=== PATIENT | male | born 1935 | race African-American/Black ===

== ENCOUNTER 2018-07-20 20:36 | Emergency (ER) | payer MEDICARE, MEDICAID ==
[~2018-07-20] VITALS: Ht 170.2 cm; Wt 68.0 kg
[~2018-07-20 20:36] MED LIST: AMOX-426 PO; ATRMDI INH; CELE200C PO; CETI-101 PO; FLUT1DIS3 INH; ISO10 PO; LIP10 PO; METH4TAB3 PO; OMEP20CA10 PO; OXYC-580 PO; TAMS-11 PO
[2018-07-20 20:47] VITALS: BP_SYST 122
[2018-07-20] MEDS ORDERED: IPRATROPIUM/ALBUTEROL SULFATE 3 ML AMPUL.NEB INH ONE (21:00)
[2018-07-20] MEDS ORDERED: methylPREDNISolone SOD SUCC/PF 62.5 MG/ML VIAL IM ONE (21:00)
[2018-07-20] MEDS ORDERED: LEVOFLOXACIN 500 MG TABLET PO ONE (22:15)
[2018-07-20 22:35] VITALS: BP_SYST 99
== END 2018-07-20 22:35 | disposition home or self-care (01) ==
LOC: SED 20:36
DX: J44.1 Chronic obstructive pulmonary disease with (acute) exacerbation (principal); J45.909 Unspecified asthma, uncomplicated; Z85.46 Personal history of malignant neoplasm of prostate; Z79.899 Other long term (current) drug therapy; Z87.891 Personal history of nicotine dependence; Z71.6 Tobacco abuse counseling
CPT/HCPCS: 71045; 94640; 96372; 99283; J2930; J7620

== ENCOUNTER 2018-08-03 18:49 | Emergency (ER) | payer OTHER, MEDICAID ==
[~2018-08-03] VITALS: Ht 172.7 cm; Wt 63.5 kg
[2018-08-03 18:49] VITALS: BP_SYST 88
[2018-08-03] MEDS ORDERED: NITROGLYCERIN 1 INCH (GM) OINT. TP ONE (19:00)
[2018-08-03] MEDS ORDERED: ASPIRIN 81 MG TAB.CHEW PO ONE (19:00)
[2018-08-03 19:27] LABS: BASOPHILS % (AUTO) 0.6 % (0.0-2.0); EOSINOPHILS # (AUTO) 0.2 K/uL (0.0-0.4); EOSINOPHILS % (AUTO) 2.7 % (0.0-4.0); HEMATOCRIT 37.5 % (36-54); HEMOGLOBIN 12.2 g/dL (14.0-18.0); LYMPHOCYTES # (AUTO) 1.9 K/uL (1.0-5.5); LYMPHOCYTES % (AUTO) 32.1 % (20.5-51.5); MEAN CORPUSCULAR HEMOGLOBIN 28 pg (27-31); MEAN CORPUSCULAR HGB CONC 33 % (32-36); MEAN CORPUSCULAR VOLUME 85 fL (79.0-98.0); MONOCYTES # (AUTO) 0.5 K/uL (0.0-1.0); MONOCYTES % (AUTO) 8.6 % (1.7-9.3); NEUTROPHILS # (AUTO) 3.3 K/uL (1.8-7.7); PLATELET COUNT (AUTO) 198 K/uL (130-430); RED BLOOD CELL COUNT(AUTO) 4.44 MIL/uL (4.2-6.2); RED CELL DISTRIBUTION WIDTH 15.8 % (9.0-15.0); WHITE BLOOD COUNT (AUTO) 5.9 K/uL (4.8-10.8)
[2018-08-03 19:32] LABS: ANION GAP 3 (5-15); CALCIUM 8.9 mg/dL (8.4-11.0); CHLORIDE 105 mmol/L (98-107); CREATININE 1.27 mg/dL (0.55-1.30); GLUCOSE 99 mg/dL (70-99); POTASSIUM 4.2 mmol/L (3.5-5.1); SODIUM SERUM 139 mmol/L (136-145); UREA NITROGEN, BLOOD 21 mg/dL (8-21)
[2018-08-03 19:37] LABS: ALANINE AMINOTRANSFERASE 25 U/L (12-78); ALBUMIN 3.3 g/dL (3.4-4.8); ASPARTATE AMINOTRANSFERASE 21 U/L (10-37); TOTAL BILIRUBIN 0.7 mg/dL (0.0-1.0)
[2018-08-03 19:42] LABS: PROTHROMBIN TIME 9.9 SECS (9.5-12.5)
[2018-08-03 19:54] VITALS: BP_SYST 94
== END 2018-08-03 20:00 | disposition short-term general hospital (02) ==
LOC: SED 18:49
DX: I21.3 ST elevation (STEMI) myocardial infarction of unspecified site (principal); J44.9 Chronic obstructive pulmonary disease, unspecified; Z85.46 Personal history of malignant neoplasm of prostate; Z87.891 Personal history of nicotine dependence; Z79.899 Other long term (current) drug therapy; Z95.818 Presence of other cardiac implants and grafts
CPT/HCPCS: 36415; 71045; 80053; 83880; 84484; 85025; 85610-TC; 93005; 99285

== ENCOUNTER 2019-02-10 14:05 | Inpatient (IN) | payer OTHER, MEDICAID ==
[~2019-02-10] VITALS: Ht 172.7 cm; Wt 61.7 kg
[2019-02-10 14:05] VITALS: BP_SYST 121
[2019-02-10] MEDS ORDERED: NS 500 ML IV ONE (14:45)
[2019-02-10] MEDS ORDERED: IPRATROPIUM/ALBUTEROL SULFATE 3 ML AMPUL.NEB (DUONEB) INH ONE (14:45)
[2019-02-10 15:24] LABS: ANION GAP 2 (5-15); CALCIUM 9.1 mg/dL (8.4-11.0); CHLORIDE 100 mmol/L (98-107); GLUCOSE 100 mg/dL (70-99); POTASSIUM 4.3 mmol/L (3.5-5.1); SODIUM SERUM 133 mmol/L (136-145); UREA NITROGEN, BLOOD 16 mg/dL (8-21)
[2019-02-10 15:26] LABS: BASOPHILS # (AUTO) 0.1 K/uL (0.0-0.2); BASOPHILS % (AUTO) 0.9 % (0.0-2.0); EOSINOPHILS # (AUTO) 0.2 K/uL (0.0-0.4); EOSINOPHILS % (AUTO) 3.5 % (0.0-4.0); HEMATOCRIT 37.9 % (36-54); LYMPHOCYTES # (AUTO) 1.6 K/uL (1.0-5.5); LYMPHOCYTES % (AUTO) 30.7 % (20.5-51.5); MEAN CORPUSCULAR HEMOGLOBIN 27 pg (27-31); MEAN CORPUSCULAR HGB CONC 32 % (32-36); MEAN CORPUSCULAR VOLUME 84 fL (79.0-98.0); MONOCYTES # (AUTO) 0.7 K/uL (0.0-1.0); MONOCYTES % (AUTO) 12.7 % (1.7-9.3); NEUTROPHILS # (AUTO) 2.8 K/uL (1.8-7.7); NEUTROPHILS % (AUTO) 52.2 % (40.0-70.0); PLATELET COUNT (AUTO) 201 K/uL (130-430); RED BLOOD CELL COUNT(AUTO) 4.51 MIL/uL (4.2-6.2); RED CELL DISTRIBUTION WIDTH 15.3 % (9.0-15.0); WHITE BLOOD COUNT (AUTO) 5.3 K/uL (4.8-10.8)
[2019-02-10 15:27] LABS: PROTHROMBIN TIME 10.4 SECS (9.5-12.5)
[2019-02-10 15:29] LABS: ALANINE AMINOTRANSFERASE 27 U/L (12-78); ALBUMIN 3.6 g/dL (3.4-4.8); ASPARTATE AMINOTRANSFERASE 27 U/L (10-37)
[2019-02-10] MEDS ORDERED: ENOXAPARIN SODIUM 60 MG/0.6 ML SYRINGE SUBCUT ONE (16:00)
[2019-02-10] MEDS ORDERED: NITROGLYCERIN 0.4 MG/HR PATCH.TD24 TD ONE (16:15)
[2019-02-10] MEDS ORDERED: methylPREDNISolone SOD SUCC 40 MG/ML VIAL IVP ONE (16:15)
[2019-02-10] MEDS ORDERED: ASPIRIN 81 MG TAB.CHEW PO ONE (16:15)
[2019-02-10] MEDS ORDERED: TIOT4MIS3 IH (16:54)
[2019-02-10] MEDS ORDERED: ALBU2.5V7 INH (16:54)
[2019-02-10] MEDS ORDERED: TAMS-11 PO (16:54)
[2019-02-10] MEDS ORDERED: LIP20 PO (16:54)
[2019-02-10 17:20] VITALS: BP_SYST 120
[2019-02-10] MEDS: LEVOFLOXACIN 500 MG/D5W 100 ML IV SCH (18:11)
[2019-02-10] MEDS ORDERED: LEVOFLOXACIN 500 MG/D5W 100 ML IV ONE (18:17)
[2019-02-10 20:49] VITALS: BP_SYST 120
[2019-02-10] MEDS: methylPREDNISolone SOD SUCC 40 MG/ML VIAL IVP SCH (21:00)
[2019-02-11 00:03] LABS: CKMB RELATIVE INDEX 0.5 (0.0-2.9); CREATINE KINASE MB 2.3 ng/mL (0-3.6)
[2019-02-11] MEDS: ALBUTEROL SULFATE 0.083% 2.5 MG/3 ML VIAL.NEB INH PRN (02:31)
[2019-02-11 02:35] VITALS: BP_SYST 120
[2019-02-11 02:35] LABS: BILIRUBIN,URINE NEGATIVE (NEGATIVE); BLOOD, URINE NEGATIVE (NEGATIVE); CLARITY/URINE CLEAR (CLEAR); COLOR,URINE YELLOW (YELLOW); GLUCOSE,URINE NEGATIVE (NEGATIVE); KETONES,URINE NEGATIVE (NEGATIVE); LEUKOCYTE ESTERASE ,URINE NEGATIVE (NEGATIVE); NITRITE, URINE NEGATIVE (NEGATIVE); PROTEIN URINE NEGATIVE (NEGATIVE)
[2019-02-11 02:40] VITALS: BP_SYST 120
[2019-02-11 04:07] LABS: CKMB RELATIVE INDEX 0.5 (0.0-2.9); CREATINE KINASE MB 2.5 ng/mL (0-3.6)
[2019-02-11] MEDS: methylPREDNISolone SOD SUCC 40 MG/ML VIAL IVP SCH ×3 (05:18→21:57)
[2019-02-11 08:00] VITALS: BP_SYST 110
[2019-02-11] MEDS ORDERED: ASPIRIN 325 MG TABLET PO ONE (09:00)
[2019-02-11] MEDS ORDERED: LEVOFLOXACIN 500 MG/D5W 100 ML IV SCH (09:00)
[2019-02-11] MEDS: OMEPRAZOLE 20 MG CAPSULE.DR (PriLOSEC) PO SCH (09:23)
[2019-02-11] MEDS: ATORVASTATIN 20 MG TABLET PO SCH (09:23)
[2019-02-11] MEDS: TAMSULOSIN HCL 0.4 MG CAP PO SCH (09:23)
[2019-02-11] MEDS: ISOSORBIDE DINITRATE 10 MG TABLET (ISORDIL) PO SCH ×3 (09:24→21:57)
[2019-02-11] MEDS: NITROGLYCERIN 0.4 MG/HR PATCH.TD24 TD SCH (09:24)
[2019-02-11 11:41] VITALS: BP_SYST 112
[2019-02-11] MEDS ORDERED: ENOXAPARIN SODIUM 40 MG/0.4 ML SYRINGE SUBCUT ONE (14:00)
[2019-02-11] MEDS: ALBUTEROL SULFATE 0.083% 2.5 MG/3 ML VIAL.NEB INH SCH ×3 (14:32→19:50)
[2019-02-11] MEDS: LEVOFLOXACIN 500 MG/D5W 100 ML IV SCH (16:52)
[2019-02-11 16:59] VITALS: BP_SYST 106
[2019-02-11] MEDS: ACETAMINOPHEN 325 MG TABLET PO PRN (17:07)
[2019-02-11 20:00] VITALS: BP_SYST 103
[2019-02-12 00:48] VITALS: BP_SYST 100
[2019-02-12] MEDS: ALBUTEROL SULFATE 0.083% 2.5 MG/3 ML VIAL.NEB INH SCH ×4 (00:59→19:35)
[2019-02-12] MEDS: ACETAMINOPHEN 325 MG TABLET PO PRN (03:27)
[2019-02-12] MEDS: methylPREDNISolone SOD SUCC 40 MG/ML VIAL IVP SCH ×3 (05:16→23:14)
[2019-02-12 06:55] LABS: BASOPHILS % (AUTO) 0.2 % (0.0-2.0); HEMATOCRIT 36.5 % (36-54); HEMOGLOBIN 11.8 g/dL (14.0-18.0); LYMPHOCYTES # (AUTO) 0.7 K/uL (1.0-5.5); LYMPHOCYTES % (AUTO) 5.2 % (20.5-51.5); MEAN CORPUSCULAR HEMOGLOBIN 27 pg (27-31); MEAN CORPUSCULAR HGB CONC 32 % (32-36); MEAN CORPUSCULAR VOLUME 83 fL (79.0-98.0); MONOCYTES # (AUTO) 0.5 K/uL (0.0-1.0); MONOCYTES % (AUTO) 3.7 % (1.7-9.3); NEUTROPHILS # (AUTO) 11.9 K/uL (1.8-7.7); NEUTROPHILS % (AUTO) 90.9 % (40.0-70.0); PLATELET COUNT (AUTO) 213 K/uL (130-430); RED CELL DISTRIBUTION WIDTH 15.1 % (9.0-15.0)
[2019-02-12] MEDS: ALBUTEROL SULFATE 0.083% 2.5 MG/3 ML VIAL.NEB INH PRN (07:22)
[2019-02-12 07:42] LABS: ALANINE AMINOTRANSFERASE 23 U/L (12-78); ALBUMIN 3.2 g/dL (3.4-4.8); ANION GAP 5 (5-15); ASPARTATE AMINOTRANSFERASE 24 U/L (10-37); CALCIUM 9.4 mg/dL (8.4-11.0); CHLORIDE 99 mmol/L (98-107); CREATININE 1.24 mg/dL (0.55-1.30); GLUCOSE 133 mg/dL (70-99); POTASSIUM 4.5 mmol/L (3.5-5.1); SODIUM SERUM 132 mmol/L (136-145); TOTAL BILIRUBIN 0.9 mg/dL (0.0-1.0); UREA NITROGEN, BLOOD 24 mg/dL (8-21)
[2019-02-12] MEDS: NITROGLYCERIN 0.4 MG/HR PATCH.TD24 TD SCH (09:00)
[2019-02-12] MEDS: OMEPRAZOLE 20 MG CAPSULE.DR (PriLOSEC) PO SCH (09:07)
[2019-02-12] MEDS: TAMSULOSIN HCL 0.4 MG CAP PO SCH (09:07)
[2019-02-12] MEDS: ATORVASTATIN 20 MG TABLET PO SCH (09:07)
[2019-02-12] MEDS: ASPIRIN 81 MG TABLET(ECOTRIN) PO SCH (09:07)
[2019-02-12] MEDS: ISOSORBIDE DINITRATE 10 MG TABLET (ISORDIL) PO SCH ×3 (09:07→21:04)
[2019-02-12] MEDS: ENOXAPARIN SODIUM 40 MG/0.4 ML SYRINGE SUBCUT SCH (09:08)
[2019-02-12] MEDS ORDERED: DOCUSATE SODIUM 100 MG CAPSULE PO ONE (09:30)
[2019-02-12] MEDS ORDERED: MILK OF MAGNESIA 30 ML UDC PO ONE (09:30)
[2019-02-12 10:04] VITALS: BP_SYST 109
[2019-02-12 12:09] VITALS: BP_SYST 102
[2019-02-12 16:45] VITALS: BP_SYST 113
[2019-02-12] MEDS: LEVOFLOXACIN 500 MG/D5W 100 ML IV SCH (17:02)
[2019-02-12 20:49] VITALS: BP_SYST 106
[2019-02-12] MEDS: DOCUSATE SODIUM 100 MG CAPSULE PO SCH (21:03)
[2019-02-12] MEDS ORDERED: ACETAMINOPHEN 325 MG TABLET PO PRN (21:15)
[2019-02-13 00:18] VITALS: BP_SYST 108
[2019-02-13] MEDS: methylPREDNISolone SOD SUCC 40 MG/ML VIAL IVP SCH ×3 (06:11→21:14)
[2019-02-13] MEDS: ALBUTEROL SULFATE 0.083% 2.5 MG/3 ML VIAL.NEB INH SCH ×4 (07:15→19:29)
[2019-02-13 08:02] VITALS: BP_SYST 106
[2019-02-13] MEDS: NITROGLYCERIN 0.4 MG/HR PATCH.TD24 TD SCH (08:45)
[2019-02-13] MEDS: ENOXAPARIN SODIUM 40 MG/0.4 ML SYRINGE SUBCUT SCH (08:46)
[2019-02-13] MEDS ORDERED: REGADENOSON 0.4 MG/5 ML SYRINGE IVP ONE (09:00)
[2019-02-13] MEDS: DOCUSATE SODIUM 100 MG CAPSULE PO SCH ×2 (09:00→21:13)
[2019-02-13] MEDS: ISOSORBIDE DINITRATE 10 MG TABLET (ISORDIL) PO SCH ×3 (10:47→21:13)
[2019-02-13 12:01] VITALS: BP_SYST 111
[2019-02-13] MEDS: ASPIRIN 81 MG TABLET(ECOTRIN) PO SCH (12:17)
[2019-02-13] MEDS: ATORVASTATIN 20 MG TABLET PO SCH (12:17)
[2019-02-13] MEDS: OMEPRAZOLE 20 MG CAPSULE.DR (PriLOSEC) PO SCH (12:17)
[2019-02-13] MEDS: TAMSULOSIN HCL 0.4 MG CAP PO SCH (12:17)
[2019-02-13] MEDS ORDERED: IOHEXOL 100 ML IV ONE (13:59)
[2019-02-13] MEDS: LEVOFLOXACIN 500 MG/D5W 100 ML IV SCH (16:19)
[2019-02-13 17:04] VITALS: BP_SYST 120
[2019-02-13 20:17] VITALS: BP_SYST 125
[2019-02-14 00:29] VITALS: BP_SYST 103
[2019-02-14] MEDS: ALBUTEROL SULFATE 0.083% 2.5 MG/3 ML VIAL.NEB INH PRN (04:01)
[2019-02-14] MEDS: methylPREDNISolone SOD SUCC 40 MG/ML VIAL IVP SCH ×2 (05:51→14:00)
[2019-02-14] MEDS ORDERED: REGADENOSON 0.4 MG/5 ML SYRINGE IVP ONE (07:15)
[2019-02-14] MEDS: ALBUTEROL SULFATE 0.083% 2.5 MG/3 ML VIAL.NEB INH SCH ×2 (07:45→10:41)
[2019-02-14 07:57] VITALS: BP_SYST 117
[2019-02-14] MEDS: TAMSULOSIN HCL 0.4 MG CAP PO SCH (11:38)
[2019-02-14] MEDS: ASPIRIN 81 MG TABLET(ECOTRIN) PO SCH (11:38)
[2019-02-14] MEDS: ISOSORBIDE DINITRATE 10 MG TABLET (ISORDIL) PO SCH ×2 (11:38→15:00)
[2019-02-14] MEDS: DOCUSATE SODIUM 100 MG CAPSULE PO SCH (11:38)
[2019-02-14] MEDS: OMEPRAZOLE 20 MG CAPSULE.DR (PriLOSEC) PO SCH (11:38)
[2019-02-14] MEDS: ATORVASTATIN 20 MG TABLET PO SCH (11:38)
[2019-02-14] MEDS: NITROGLYCERIN 0.4 MG/HR PATCH.TD24 TD SCH (11:39)
[2019-02-14] MEDS: ENOXAPARIN SODIUM 40 MG/0.4 ML SYRINGE SUBCUT SCH (11:42)
[2019-02-14 12:32] VITALS: BP_SYST 121
[2019-02-14 12:55] VITALS: BP_SYST 121
[2019-02-14 16:25] VITALS: BP_SYST 110
== END 2019-02-14 15:33 | disposition home health service (06) | DRG 280 ==
LOC: SED 14:05 → STU 16:01 → SMU 02-12 11:46
PROVIDERS: ADMIT Internal Medicine; ATTEND Internal Medicine
DX: I21.A1 Myocardial infarction type 2 (principal); J96.20 Acute and chronic respiratory failure, unspecified whether with hypoxia or hypercapnia; J44.1 Chronic obstructive pulmonary disease with (acute) exacerbation; E87.1 Hypo-osmolality and hyponatremia; D64.9 Anemia, unspecified; E78.5 Hyperlipidemia, unspecified; H91.90 Unspecified hearing loss, unspecified ear; I11.0 Hypertensive heart disease with heart failure; I25.10 Atherosclerotic heart disease of native coronary artery without angina pectoris; M06.9 Rheumatoid arthritis, unspecified; F17.210 Nicotine dependence, cigarettes, uncomplicated; K59.00 Constipation, unspecified; I25.2 Old myocardial infarction; Z85.46 Personal history of malignant neoplasm of prostate; Z99.81 Dependence on supplemental oxygen
CPT/HCPCS: 36415; 70491-TC; 71045; 80053; 81003; 82550-TC; 82553-TC; 83605; 84484; 85025; 85610-TC; 85730-TC; 87040-TC; 87086; 93005; 93017; 93306; 94640; 94760; 96360; 96372; 97116-GP; 97530-GP; 99285; A9500; G0378; J1030; J1650; J1956; J2785; J7040; J7613; J7620; Q9967

== ENCOUNTER 2019-04-04 10:56 | Inpatient (IN) | payer OTHER, MEDICAID ==
[~2019-04-04] VITALS: Ht 172.7 cm; Wt 65.8 kg
[2019-04-04 10:56] VITALS: BP_SYST 116
[~2019-04-04 10:56] MED LIST changes: +ALBU2.5V7 INH; -AMOX-426 PO; -ATRMDI INH; -CETI-101 PO; -FLUT1DIS3 INH; -LIP10 PO; +LIP20 PO; -METH4TAB3 PO; -OXYC-580 PO; +TIOT4MIS3 IH
[2019-04-04] MEDS ORDERED: methylPREDNISolone SOD SUCC/PF 62.5 MG/ML VIAL IVP ONE (11:30)
[2019-04-04] MEDS ORDERED: IPRATROPIUM/ALBUTEROL SULFATE 3 ML AMPUL.NEB (DUONEB) INH ONE (11:30)
[2019-04-04 11:41] LABS: EOSINOPHILS # (AUTO) 0.1 K/uL (0.0-0.4); EOSINOPHILS % (AUTO) 2.3 % (0.0-4.0); MONOCYTES # (AUTO) 0.6 K/uL (0.0-1.0); NEUTROPHILS % (AUTO) 58.3 % (40.0-70.0)
[2019-04-04 12:02] LABS: BASOPHILS % (AUTO) 0.9 % (0.0-2.0); HEMATOCRIT 36.2 % (36-54); HEMOGLOBIN 11.6 g/dL (14.0-18.0); LYMPHOCYTES # (AUTO) 1.5 K/uL (1.0-5.5); LYMPHOCYTES % (AUTO) 27.6 % (20.5-51.5); MEAN CORPUSCULAR HEMOGLOBIN 27 pg (27-31); MEAN CORPUSCULAR HGB CONC 32 % (32-36); MEAN CORPUSCULAR VOLUME 85 fL (79.0-98.0); MONOCYTES % (AUTO) 10.9 % (1.7-9.3); NEUTROPHILS # (AUTO) 3.1 K/uL (1.8-7.7); PLATELET COUNT (AUTO) 138 K/uL (130-430); RED BLOOD CELL COUNT(AUTO) 4.26 MIL/uL (4.2-6.2); RED CELL DISTRIBUTION WIDTH 15.9 % (9.0-15.0); WHITE BLOOD COUNT (AUTO) 5.3 K/uL (4.8-10.8)
[2019-04-04] MEDS ORDERED: VITD2000 PO (12:24)
[2019-04-04] MEDS ORDERED: IPRA3AMP9 INH (12:24)
[2019-04-04] MEDS ORDERED: OXYC15TA46 PO (12:24)
[2019-04-04] MEDS ORDERED: FLUT1DIS3 IH (12:24)
[2019-04-04] MEDS ORDERED: ATRMDI INH (12:24)
[2019-04-04] MEDS ORDERED: ALBU8.5H8 INH (12:24)
[2019-04-04] MEDS ORDERED: TAMS-11 PO (12:24)
[2019-04-04 12:31] LABS: ANION GAP 9 (5-15); CHLORIDE 104 mmol/L (98-107); GLUCOSE 99 mg/dL (70-99); POTASSIUM 4.2 mmol/L (3.5-5.1); SODIUM SERUM 138 mmol/L (136-145); UREA NITROGEN, BLOOD 21 mg/dL (8-21)
[2019-04-04 12:34] LABS: BILIRUBIN,URINE NEGATIVE (NEGATIVE); BLOOD, URINE NEGATIVE (NEGATIVE); CLARITY/URINE HAZY (CLEAR); COLOR,URINE YELLOW (YELLOW); GLUCOSE,URINE NEGATIVE (NEGATIVE); KETONES,URINE NEGATIVE (NEGATIVE); LEUKOCYTE ESTERASE ,URINE NEGATIVE (NEGATIVE); NITRITE, URINE NEGATIVE (NEGATIVE); PROTEIN URINE NEGATIVE (NEGATIVE); UROBILINOGEN,URINE 0.2 (0.2-1.0)
[2019-04-04 12:36] LABS: ALANINE AMINOTRANSFERASE 22 U/L (12-78); ALBUMIN 3.2 g/dL (3.4-4.8); ASPARTATE AMINOTRANSFERASE 20 U/L (10-37); TOTAL BILIRUBIN 0.9 mg/dL (0.0-1.0)
[2019-04-04] MEDS ORDERED: NACL 0.9% 1,000 ML IV ONE (13:00)
[2019-04-04 15:15] VITALS: BP_SYST 121
[2019-04-04] MEDS ORDERED: ALBUTEROL SULFATE 0.083% 2.5 MG/3 ML VIAL.NEB INH PRN (15:15)
[2019-04-04] MEDS ORDERED: IPRATROPIUM BROM 0.5 MG/2.5 ML VIAL.NEB (ATROVENT) INH PRN (15:15)
[2019-04-04 15:34] VITALS: BP_SYST 102
[2019-04-04 15:55] VITALS: BP_SYST 103
[2019-04-04] MEDS: cefTRIAXone 1 GM in D5W 50 ML IV SCH (16:05)
[2019-04-04] MEDS: AZITHROMYCIN 500 MG in NS 250 ML IV SCH (16:42)
[2019-04-04] MEDS: IPRATROPIUM BROM 0.5 MG/2.5 ML VIAL.NEB (ATROVENT) INH SCH (19:41)
[2019-04-04] MEDS: ALBUTEROL SULFATE 0.083% 2.5 MG/3 ML VIAL.NEB INH SCH (19:41)
[2019-04-04] MEDS: ISOSORBIDE DINITRATE 10 MG TABLET (ISORDIL) PO SCH (20:28)
[2019-04-04 20:37] VITALS: BP_SYST 134
[2019-04-04] MEDS: methylPREDNISolone SOD SUCC/PF 62.5 MG/ML VIAL IVP SCH (22:01)
[2019-04-05 01:24] VITALS: BP_SYST 129
[2019-04-05] MEDS: ALBUTEROL SULFATE 0.083% 2.5 MG/3 ML VIAL.NEB INH SCH ×4 (04:10→20:59)
[2019-04-05] MEDS: IPRATROPIUM BROM 0.5 MG/2.5 ML VIAL.NEB (ATROVENT) INH SCH ×4 (04:11→20:58)
[2019-04-05] MEDS: methylPREDNISolone SOD SUCC/PF 62.5 MG/ML VIAL IVP SCH ×3 (05:30→21:36)
[2019-04-05] MEDS: OMEPRAZOLE 20 MG CAPSULE.DR (PriLOSEC) PO SCH (06:20)
[2019-04-05 08:00] VITALS: BP_SYST 120
[2019-04-05] MEDS: ISOSORBIDE DINITRATE 10 MG TABLET (ISORDIL) PO SCH ×3 (08:18→21:36)
[2019-04-05] MEDS: TAMSULOSIN HCL 0.4 MG CAP PO SCH (08:18)
[2019-04-05] MEDS: ENOXAPARIN SODIUM 30 MG/0.3 ML SYRINGE SUBCUT SCH (08:20)
[2019-04-05 12:18] VITALS: BP_SYST 119
[2019-04-05] MEDS: AZITHROMYCIN 500 MG in NS 250 ML IV SCH (14:30)
[2019-04-05 16:10] VITALS: BP_SYST 116
[2019-04-05] MEDS: cefTRIAXone 1 GM in D5W 50 ML IV SCH (16:35)
[2019-04-05] MEDS ORDERED: POLYETHYLENE GLYCOL 3350, 17 GM/ POWD.PACK PO ONE (17:45)
[2019-04-05 20:00] VITALS: BP_SYST 122
[2019-04-06] MEDS: IPRATROPIUM BROM 0.5 MG/2.5 ML VIAL.NEB (ATROVENT) INH SCH ×3 (00:48→14:19)
[2019-04-06] MEDS: ALBUTEROL SULFATE 0.083% 2.5 MG/3 ML VIAL.NEB INH SCH ×3 (00:48→14:19)
[2019-04-06 01:01] VITALS: BP_SYST 109
[2019-04-06] MEDS: methylPREDNISolone SOD SUCC/PF 62.5 MG/ML VIAL IVP SCH (05:55)
[2019-04-06] MEDS: OMEPRAZOLE 20 MG CAPSULE.DR (PriLOSEC) PO SCH (06:06)
[2019-04-06] MEDS: MIDAZOLAM HCL 5 MG/5 ML VIAL ONE ×3 (07:06→07:10)
[2019-04-06] MEDS: fentaNYL CITRATE/PF 100 MCG/2 ML AMP ONE ×2 (07:06→07:08)
[2019-04-06 07:43] LABS: PROTHROMBIN TIME 9.9 SECS (9.5-12.5)
[2019-04-06 09:00] VITALS: BP_SYST 112
[2019-04-06] MEDS ORDERED: POLYETHYLENE GLYCOL 3350, 17 GM/ POWD.PACK PO SCH (09:00)
[2019-04-06] MEDS ORDERED: fentaNYL CITRATE/PF 100 MCG/2 ML AMP IVP PRN ×2 (09:15)
[2019-04-06] MEDS: ISOSORBIDE DINITRATE 10 MG TABLET (ISORDIL) PO SCH ×3 (09:33→20:34)
[2019-04-06] MEDS: POLYETHYLENE GLYCOL 3350, 17 GM/ POWD.PACK PO SCH (09:33)
[2019-04-06] MEDS: TAMSULOSIN HCL 0.4 MG CAP PO SCH (09:33)
[2019-04-06] MEDS: ENOXAPARIN SODIUM 30 MG/0.3 ML SYRINGE SUBCUT SCH (09:34)
[2019-04-06 12:34] VITALS: BP_SYST 113
[2019-04-06] MEDS: AZITHROMYCIN 500 MG in NS 250 ML IV SCH (15:37)
[2019-04-06 16:48] VITALS: BP_SYST 119
[2019-04-06] MEDS: cefTRIAXone 1 GM in D5W 50 ML IV SCH (17:30)
[2019-04-06 20:00] VITALS: BP_SYST 111
[2019-04-06] MEDS: PREDNISONE 20 MG TABLET PO SCH (20:33)
[2019-04-07 00:35] VITALS: BP_SYST 106
[2019-04-07] MEDS: IPRATROPIUM BROM 0.5 MG/2.5 ML VIAL.NEB (ATROVENT) INH SCH ×4 (02:05→20:02)
[2019-04-07] MEDS: ALBUTEROL SULFATE 0.083% 2.5 MG/3 ML VIAL.NEB INH SCH ×4 (02:05→20:02)
[2019-04-07] MEDS: OMEPRAZOLE 20 MG CAPSULE.DR (PriLOSEC) PO SCH (06:13)
[2019-04-07] MEDS: ENOXAPARIN SODIUM 30 MG/0.3 ML SYRINGE SUBCUT SCH (08:39)
[2019-04-07] MEDS: PREDNISONE 20 MG TABLET PO SCH ×2 (08:39→20:23)
[2019-04-07] MEDS: POLYETHYLENE GLYCOL 3350, 17 GM/ POWD.PACK PO SCH (08:39)
[2019-04-07 08:40] VITALS: BP_SYST 105
[2019-04-07] MEDS: ISOSORBIDE DINITRATE 10 MG TABLET (ISORDIL) PO SCH ×3 (08:40→20:23)
[2019-04-07] MEDS: TAMSULOSIN HCL 0.4 MG CAP PO SCH (08:40)
[2019-04-07 10:36] VITALS: BP_SYST 106
[2019-04-07 11:16] VITALS: BP_SYST 109
[2019-04-07] MEDS: AZITHROMYCIN 500 MG in NS 250 ML IV SCH (15:11)
[2019-04-07 15:35] VITALS: BP_SYST 117
[2019-04-07] MEDS: cefTRIAXone 1 GM in D5W 50 ML IV SCH (16:25)
[2019-04-07 20:00] VITALS: BP_SYST 116
[2019-04-08 01:12] VITALS: BP_SYST 115
[2019-04-08] MEDS: IPRATROPIUM BROM 0.5 MG/2.5 ML VIAL.NEB (ATROVENT) INH SCH ×3 (01:15→11:53)
[2019-04-08] MEDS: ALBUTEROL SULFATE 0.083% 2.5 MG/3 ML VIAL.NEB INH SCH ×3 (01:15→11:49)
[2019-04-08] MEDS: OMEPRAZOLE 20 MG CAPSULE.DR (PriLOSEC) PO SCH (06:02)
[2019-04-08 07:45] VITALS: BP_SYST 107
[2019-04-08] MEDS: TAMSULOSIN HCL 0.4 MG CAP PO SCH (08:44)
[2019-04-08] MEDS: PREDNISONE 20 MG TABLET PO SCH (08:45)
[2019-04-08] MEDS: ENOXAPARIN SODIUM 30 MG/0.3 ML SYRINGE SUBCUT SCH (08:47)
[2019-04-08] MEDS: ISOSORBIDE DINITRATE 10 MG TABLET (ISORDIL) PO SCH (08:48)
[2019-04-08] MEDS: POLYETHYLENE GLYCOL 3350, 17 GM/ POWD.PACK PO SCH (08:48)
[2019-04-08 11:25] VITALS: BP_SYST 107
[2019-04-08] MEDS ORDERED: BUDE6HFA INH ×2 (11:41→15:04)
[2019-04-08] MEDS ORDERED: MED4 PO (11:42)
[2019-04-08] MEDS ORDERED: FAMO20TA8 PO (11:51)
[2019-04-08 12:30] VITALS: BP_SYST 107
[2019-04-08] MEDS ORDERED: AZIT500T3 PO (15:07)
[2019-04-08] MEDS ORDERED: METO25TA6 PO (15:08)
[2019-04-08] MEDS ORDERED: ASPI-1153 PO (15:10)
[2019-04-08 16:00] VITALS: BP_SYST 115
== END 2019-04-08 17:00 | disposition home or self-care (01) | DRG 189 ==
LOC: SED 10:56 → SMU 14:49
PROVIDERS: ADMIT Internal Medicine Hospice and Palliative Medicine; ATTEND Internal Medicine Hospice and Palliative Medicine
PROC: 0DJ08ZZ Inspection of Upper Intestinal Tract, Via Natural or Artificial Opening Endoscopic (ICD-10-PCS; 2019-04-06)
PROC: 0D758ZZ Dilation of Esophagus, Via Natural or Artificial Opening Endoscopic (ICD-10-PCS; principal; 2019-04-06 08:30)
DX: J96.20 Acute and chronic respiratory failure, unspecified whether with hypoxia or hypercapnia (principal); J44.1 Chronic obstructive pulmonary disease with (acute) exacerbation; E78.5 Hyperlipidemia, unspecified; H91.90 Unspecified hearing loss, unspecified ear; I10 Essential (primary) hypertension; I25.10 Atherosclerotic heart disease of native coronary artery without angina pectoris; K29.70 Gastritis, unspecified, without bleeding; N40.0 Benign prostatic hyperplasia without lower urinary tract symptoms; K44.9 Diaphragmatic hernia without obstruction or gangrene; R13.10 Dysphagia, unspecified; Z85.46 Personal history of malignant neoplasm of prostate; Z95.5 Presence of coronary angioplasty implant and graft; Z99.81 Dependence on supplemental oxygen; Z79.899 Other long term (current) drug therapy; Z87.891 Personal history of nicotine dependence
CPT/HCPCS: 36415; 36600; 70490; 71250-TC; 80053; 81003; 82803-TC; 83605; 83880; 85025; 85610-TC; 87040-TC; 87086; 93005; 94640; 94760; 96361; 96374; 99285; J0456; J0696; J1650; J2250; J2930; J3010; J7030; J7050; J7060; J7512; J7613; J7620

== ENCOUNTER 2019-07-11 22:37 | Inpatient (IN) | payer OTHER, MEDICAID ==
[~2019-07-11] VITALS: Ht 170.2 cm; Wt 64.9 kg
[~2019-07-11 22:37] MED LIST changes: -ALBU2.5V7 INH; +ALBU8.5H8 INH; +ASPI-1153 PO; +ATRMDI INH; +AZIT500T3 PO; +BIMA2.5D5 OP; +BUDE6HFA INH; +CETI1TAB2 PO; +DOCU-144 PO; +FAMO20TA8 PO; +FLUT1DIS3 IH; +IPRA3AMP9 INH; -LIP20 PO; +MED4 PO; +METO25TA6 PO; +MORP10SO PO; -OMEP20CA10 PO; +OMEP20CA11 PO; +OXYC15TA46 PO; +SENN-83 PO; -TIOT4MIS3 IH; +VITD2000 PO
[2019-07-11 22:40] VITALS: BP_SYST 91
--- NOTE | 2019-07-11 22:45 | NUR ---
Placed in room 02 . Placed on ekg monitor tech, blood pressure machine and pulse oximeter. To gown for exam. Side rails up.
--- NOTE | 2019-07-11 23:00 | NUR ---
Pt is AAOx4 and able to verbalize needs. Pt is IONE in both ears. Pt brought in by family for c/o substernal pain that has been consistent all day and sob. Pt states pain 7/10 at this time. Pt denies any n/v/d/abd pain. Will continue to monitor pt.
--- NOTE | 2019-07-11 23:23 | NUR ---
ER at bedside examining patient.
[2019-07-11] MEDS ORDERED: LevALBUTEROL HCL 1.25 MG/0.5 ML *CONC.* VIAL.NEB (XOPENEX CONC.) INH ONE (23:30)
[2019-07-11] MEDS ORDERED: ASPIRIN 81 MG TAB.CHEW PO ONE (23:30)
[2019-07-11] MEDS ORDERED: BUDESONIDE 0.5 MG/2 ML AMPUL.NEB INH ONE (23:30)
[2019-07-12] VITALS (7 sets, daily range): BP systolic 100–128
[2019-07-12 00:17] LABS: EOSINOPHILS # (AUTO) 0.1 K/uL (0.0-0.4); EOSINOPHILS % (AUTO) 3.1 % (0.0-4.0); HEMATOCRIT 35.6 % (36-54); HEMOGLOBIN 11.5 g/dL (14.0-18.0); LYMPHOCYTES # (AUTO) 1.5 K/uL (1.0-5.5); LYMPHOCYTES % (AUTO) 34.5 % (20.5-51.5); MEAN CORPUSCULAR HEMOGLOBIN 28 pg (27-31); MEAN CORPUSCULAR HGB CONC 32 % (32-36); MEAN CORPUSCULAR VOLUME 86 fL (79.0-98.0); MONOCYTES # (AUTO) 0.6 K/uL (0.0-1.0); MONOCYTES % (AUTO) 12.8 % (1.7-9.3); NEUTROPHILS # (AUTO) 2.2 K/uL (1.8-7.7); NEUTROPHILS % (AUTO) 48.6 % (40.0-70.0); PLATELET COUNT (AUTO) 133 K/uL (130-430); RED BLOOD CELL COUNT(AUTO) 4.17 MIL/uL (4.2-6.2); RED CELL DISTRIBUTION WIDTH 15.1 % (9.0-15.0); WHITE BLOOD COUNT (AUTO) 4.5 K/uL (4.8-10.8)
[2019-07-12 00:35] LABS: ANION GAP 5 (5-15); CALCIUM 8.3 mg/dL (8.4-11.0); CHLORIDE 108 mmol/L (98-107); CREATININE 1.28 mg/dL (0.55-1.30); GLUCOSE 104 mg/dL (70-99); POTASSIUM 3.6 mmol/L (3.5-5.1); SODIUM SERUM 143 mmol/L (136-145); UREA NITROGEN, BLOOD 19 mg/dL (8-21)
[2019-07-12 00:38] LABS: INR 1.1 (0.80-1.20); PROTHROMBIN TIME 11.2 SECS (9.5-12.5)
[2019-07-12 00:41] LABS: ALANINE AMINOTRANSFERASE 16 U/L (12-78); ASPARTATE AMINOTRANSFERASE 20 U/L (10-37); TOTAL BILIRUBIN 0.6 mg/dL (0.0-1.0)
--- NOTE | 2019-07-12 01:15 | NUR ---
# 20 gauge angiocath placed to LFA. Use of asceptic technique. Opsite placed over site. Blood return noted. Flushed with 10 cc of normal saline. No evidence of infiltration noted. Patient tolerated well.
[2019-07-12] MEDS ORDERED: NITROGLYCERIN 0.4 MG TAB.SUBL SL PRN (01:30)
--- NOTE | 2019-07-12 01:59 | NUR ---
Medication reconciliation unable to obtain at this time. Admitting MD, Dr. Manley is aware.
--- NOTE | 2019-07-12 02:15 | NUR ---
ADMISSION NOTE Received patient from ER via gurney. Patient admitted with diagnosis of chest pain R/O SC. Patient is awake, alert, oriented x4. Patient oriented to hospital room, call light, toileting, pain management and safety-teach back done. Patient informed that Kenisha will be his nurse and that their room number is 106B. Personal belongings checked and Belongings List documented. Call light within reach.
--- NOTE | 2019-07-12 02:15 | NUR ---
Patient will be admitted to care of Dr. Matos. Admitted to tele unit. Will go to room 106B. Belongings list completed. Summary report printed. Report will be given at bedside. Pt is full code.
--- NOTE | 2019-07-12 03:20 | NUR ---
Assessment Assessment completed. Belongings completed. Patient had medication and money in his pant pocket. The medication was placed in plastic bag and sealed for pharmacy, patient aware and signed. He insisted on keeping his money and ID cards, which were returned to him and he has in pant pocket. Two lighters and pocket knife are being kept at nursing station, on charge nurse desk.
--- NOTE | 2019-07-12 03:51 | NUR ---
CONSULT: CONSULT CALLED FOR DR. LEROY I SPOKE WITH SOFIE RATLIFF REASON FOR CONSULT: CHEST PAIN REQUESTING CONSULT: DR. COURTNEY PROJECT ACCOUNT MANAGER PHONE NUMBER: [phone]
--- NOTE | 2019-07-12 04:55 | NUR ---
Rounds Patient resting, eyes closed, easily aroused. He denies pain, wants lights off and wants to keep oxygen sensor on finger. Bed alarm on and call light w/in reach.
--- NOTE | 2019-07-12 05:46 | NUR ---
Paged Dr. Manley, s/w Jamila.
--- NOTE | 2019-07-12 05:47 | NUR ---
s/w Dr. Haddad Notified Dr. Haddad patient is requesting breathing treatment and there is no order. He provided breathing treatment order of albuterol 2.25mg Neb Q4 PRN, read back and entered in [employer].
[2019-07-12] MEDS ORDERED: ALBUTEROL SULFATE 0.083% 2.5 MG/3 ML VIAL.NEB INH PRN (06:00)
--- NOTE | 2019-07-12 06:49 | NUR ---
CLOSING NOTE Patient resting in comfortable position, no sign/symptom of distress. Non-labored breathing on room air. Needs met throughout shift, will endorse care to oncoming nurse.
--- NOTE | 2019-07-12 07:10 | NUR ---
report received at the bedside. patient alert awake x 3. breathing even and unlabored. abdomen soft and non distended. refused to removed his pants, with ids and money on it. said i am okay. has iv access on the left forearm #20. saline lock. bed low position, alarmed and locked. call lights within reach. instructed to call for assistance.
--- NOTE | 2019-07-12 08:00 | NUR ---
vitals signs taken. afebrile. no complained made so far
--- NOTE | 2019-07-12 08:43 | NUR ---
seen by dr sosa at this time.
[2019-07-12] MEDS: ASPIRIN 81 MG TABLET(ECOTRIN) PO SCH (09:00)
--- NOTE | 2019-07-12 09:14 | NUR ---
Nutrition Update Abbe Scale 17 noted. Pt admitted for chest pain r/o WV. Diet: cardiac BMI: 22.4 kg/m2 RD to follow per nutrition care standards.
--- NOTE | 2019-07-12 10:00 | NUR ---
due medication given as ordered.
[2019-07-12] MEDS: ASPIRIN 325 MG TABLET PO SCH (10:25)
[2019-07-12] MEDS: DOCUSATE SODIUM 100 MG CAPSULE PO SCH (10:25)
[2019-07-12] MEDS: METOPROLOL TARTRATE 25 MG TABLET PO SCH ×2 (10:26→21:13)
[2019-07-12] MEDS: FAMOTIDINE 20 MG TABLET PO SCH ×2 (10:26→21:11)
--- NOTE | 2019-07-12 10:30 | NUR ---
son came and took all his belongings except the money and ids on his pants, and patient refused to take it out.. son aware that medication is on the pharmacy.
--- NOTE | 2019-07-12 10:35 | NUR ---
son Shiv came and took bag for oxygen and other clothings. and took also the samayoa $406.00 dollars and all the Identification of the patient. and informed the medicine is at the pharmacy.
[2019-07-12] MEDS: IPRATROPIUM/ALBUTEROL SULFATE 3 ML AMPUL.NEB (DUONEB) INH PRN ×2 (11:49→19:08)
--- NOTE | 2019-07-12 11:57 | NUR ---
had respiratory treatment given.
--- NOTE | 2019-07-12 13:58 | NUR ---
CONSULTATION CALLED FOR [facility] FOR CONSULT OF CP ORDER BY DR ANDERSON COMMERCIAL SALES DIRECTOR HUNG UP PHONE BEFORE I COULD GET NAME
--- NOTE | 2019-07-12 16:06 | NUR ---
resting at this time. no pain nor acute distress noted.
--- NOTE | 2019-07-12 17:23 | NUR ---
still asleep both eyes closed. no complained made so far.
--- NOTE | 2019-07-12 18:25 | NUR ---
assists on adls. open his food to eat. made comfortable. hob elevated.
--- NOTE | 2019-07-12 18:30 | NUR ---
still refused to take the pants off and to be cleaned. said i am okay.
--- NOTE | 2019-07-12 18:56 | NUR ---
nitrostat 0.4 mg sublingual given at this time. with chest pressure of 4. given x 1. continue to monitor patients status.
--- NOTE | 2019-07-12 19:02 | NUR ---
2nd nitrostat tab sublingual given at this time. made comfortable.
--- NOTE | 2019-07-12 19:20 | NUR ---
sbar report endorsed to incoming nurse Susanna ARREGUIN
--- NOTE | 2019-07-12 19:31 | NUR ---
called the son Shiv if he the money worth $406.00 dollars and all the identification of the patients. he said he have it.
--- NOTE | 2019-07-12 20:00 | NUR ---
INITIAL NOTES: PT IS SLEEPING ,EASILY AROUSABLE ; NOT IN ANY ACUTE DISTRESS; DENIED ANY CHEST PAIN OR SOB ; VITALS ARE STABLE ;ASSESSMENT DONE ; ON O2 2L NC , SAT 98-100% ; PER REPORT PT DESAT WHILE SLEEPING ; ALL NEEDS MET ;BED IN LOW AND LOCK POSITION , CALL ZUÑIGA IN REACH ; ALL NEEDS MET ; WILL CONTINUE TO MONITOR PT . Addendum: 07/13/19 at 0701 by Susanna Ledbetter RN PT IS WEARING HIS OWN BLACK PANT , PT REFUSED TO REMOVE AND CHECK HIS BACK .
--- NOTE | 2019-07-12 20:24 | NUR ---
PAGED PAGING DR. LEROY, SPOKE WITH KALEB
--- NOTE | 2019-07-12 20:30 | NUR ---
CALLED BACK ; DR LEROY CALLED BACK , NOTIFIED TROPONIN 0.117 , MD STATED NO MORE TROPONIN TEST NEEDED ,NO OTHER ORDERS RECEIVED .
[2019-07-12] MEDS: LATANOPROST 2.5 ML DROPS (XALATAN) OP SCH (21:14)
--- NOTE | 2019-07-12 21:15 | NUR ---
MEDICATION; DUE MEDS GIVEN , PT IS COMFORTABLE ; NOT IN ANY ACUTE DISTRESS; WILL CONTINUE TO MONITOR PT .
--- NOTE | 2019-07-12 23:30 | NUR ---
RN ROUNDS; PT IS SLEEPING , VITALS ARE STABLE ; NOT IN ANY ACUTE DISTRESS; BED I LOW AND LOCK POSITION , ON O2 2L NC , WILL CONTINUE TO MONITOR PT .
[2019-07-13 00:57] VITALS: BP_SYST 111
--- NOTE | 2019-07-13 01:00 | NUR ---
RN ROUNDS; PT IS SLEEPING , COMFORTABLE ; RESPIRATION IS EVEN AND NON LABORED ; WILL CONTINUE TO MONITOR PT
--- NOTE | 2019-07-13 03:00 | NUR ---
RN NOTES: PT IS SLEEPING , NOT IN ANY ACUTE DISTRESS; RESPIRATION IS EVEN AND NON LABORED ; WILL CONTINUE TO MONITOR PT .
[2019-07-13 04:29] VITALS: BP_SYST 112
--- NOTE | 2019-07-13 04:31 | NUR ---
RN NOTES: PTS SATING 98-100 ON 2 L NC , REDUCED O2 TO 1L NC , SAT STILL 97-99 % , PT REQUESTED FOR BREATHING TREATMENT , RT AT BEDSIDE PROVIDING BREATHING TREATMENT .
[2019-07-13] MEDS: IPRATROPIUM/ALBUTEROL SULFATE 3 ML AMPUL.NEB (DUONEB) INH PRN ×2 (04:35→22:15)
--- NOTE | 2019-07-13 06:07 | NUR ---
RN NOTES: PT IS SLEEPING , COMFORTABLE ; NOT IN ANY ACUTE DISTRESS; WILL CONTINUE TO MONITOR PT .
--- NOTE | 2019-07-13 07:00 | NUR ---
CLOSING NOTES; PT IS COMFORTABLE , SLEEPING , RESPIRATION IS EVEN AND NON LABORED ;ALL NEEDS MET ; WILL CONTINUE TO MONITOR AND WILL ENDORSE TO NEXT SHIFT NURSE .
[2019-07-13 08:00] VITALS: BP_SYST 111
--- NOTE | 2019-07-13 08:00 | NUR ---
ASSUMPTION OF CARE: RECEIVED PT A/A/OX4, [place], VSS, NO C/O PAIN OR DISCOMFORT, DX: DECREASED CARDIAC OUTPUT, R/T CHEST PAIN, BREATH SOUNDS ARE CLEAR, DIMINISHED, BREATHING UNLABORED, SATURATING 96% ORA, ORIENTED TO UNIT, CALL LIGHT PLACED WITHIN REACH, IV SITE INTACT, PATENT, NO REDNESS OR SWELLING, SALINE LOCKED, NO REQUEST MADE AT THIS TIME, WILL CON'T TO MONITOR AND ASSESS.
[2019-07-13] MEDS: ASPIRIN 325 MG TABLET PO SCH (08:27)
[2019-07-13] MEDS: DOCUSATE SODIUM 100 MG CAPSULE PO SCH (08:27)
[2019-07-13] MEDS: ASPIRIN 81 MG TABLET(ECOTRIN) PO SCH (08:27)
[2019-07-13] MEDS: FAMOTIDINE 20 MG TABLET PO SCH ×2 (08:27→20:41)
[2019-07-13] MEDS: METOPROLOL TARTRATE 25 MG TABLET PO SCH ×2 (08:27→20:42)
--- NOTE | 2019-07-13 08:30 | NUR ---
VISIT: DR. LEROY AT BEDSIDE FOR ASSESSMENT OF PT, DISCUSSED POC, VERBALIZES UNDERSTANDING, WILL CON'T TO MONITOR AND ASSESS.
--- NOTE | 2019-07-13 08:45 | NUR ---
VISIT: DR. COURTNEY AT BEDSIDE FOR ASSESSMENT OF PT, DISCUSSED POC, VERBALIZES UNDERSTANDING, WILL CON'T TO MONITOR AND ASSESS.
--- NOTE | 2019-07-13 09:00 | NUR ---
LENS BLOCK GAUGER: MORNING MEDS GIVEN, PER ORDERED BY Rosa, TOLERATED WELL, WILL CON'T TO MONITOR AND ASSESS.
[2019-07-13 11:08] VITALS: BP_SYST 111
--- NOTE | 2019-07-13 12:00 | NUR ---
NURSES NOTES: PT REMAINS STABLE, NO SIGNIFICANT CHANGES IN CONDITION NOTED, CALL LIGHT WITHIN REACH, WILL CON'T TO MONITOR AND ASSESS.
[2019-07-13 12:11] LABS: FREE PSA 0.47 ng/mL
[2019-07-13 13:16] LABS: % FREE PSA 14.2 % (.); PROSTATE SPECIFIC AG TOTAL 3.3 ng/mL (0.0-4.0)
--- NOTE | 2019-07-13 15:00 | NUR ---
NURSES NOTES: PT ASLEEP, NO S/S OF DISTRESS, NO INDICATION OF PAIN OR DISCOMFORT, CALL LIGHT WITHIN REACH, WILL CON'T TO MONITOR AND ASSESS.
[2019-07-13 15:12] VITALS: BP_SYST 127
--- NOTE | 2019-07-13 19:45 | NUR ---
OPENING NOTES Received patient awake and oriented, no signs of acute respiratory distress observed, 1L Nasal canula. Patient has IV Left Forearm 20g patent, dressings c/d/i. Patient states that he has no pain at this time. Patient oriented to use of call light and bed alarm. Call light within reach, bed alarm on, and bed at lowest position. Will continue to monitor.
[2019-07-13 20:11] VITALS: BP_SYST 119
[2019-07-13] MEDS: LATANOPROST 2.5 ML DROPS (XALATAN) OP SCH (21:00)
--- NOTE | 2019-07-13 22:05 | NUR ---
Patient resting in bed, no acute respiratory distress observed, 1L NC. Patient requested breathing treatments and RT at bedside. Safety precautions in place. Will continue to monitor.
[2019-07-14] VITALS (7 sets, daily range): BP systolic 100–125
--- NOTE | 2019-07-14 00:04 | NUR ---
Patient resting in bed, no acute respiratory distress observed. Safety precautions in place. Will continue to monitor.
--- NOTE | 2019-07-14 02:05 | NUR ---
Patient is asleep, eyes closed. Rise and fall of chest noted, no respiratory distress observed. Will continue to monitor.
--- NOTE | 2019-07-14 04:10 | NUR ---
Patient is sleeping, eyes closed. Breathing unlabored and even, Room air. Safety precautions in place. Will continue to monitor.
[2019-07-14] MEDS: IPRATROPIUM/ALBUTEROL SULFATE 3 ML AMPUL.NEB (DUONEB) INH PRN ×2 (05:07→20:58)
--- NOTE | 2019-07-14 06:19 | NUR ---
CLOSING NOTES Patient is resting in bed, no acute respiratory distress observed, rise and fall of chest noted. IV on Left FA 20g SL, patent, dressings c/d/i. Call light within reach, bed alarm on, and bed at lowest position. All needs met throughout shift. Will endorse care to oncoming shift.
--- NOTE | 2019-07-14 08:00 | NUR ---
Note Pt sitting up in bed with O2 at 1L/nc (pt insists of having O2 on for comfort). Pt's tele unit attached and intact at this time. No SOB/resp distress or chest pain discomfort noted at this time. IV at left forearm intact and patent at this time. Pt uses urinal for voiding and close monitoring of urine output. Pt c/o urine output. No needs noted at this time. Call light within reach.
[2019-07-14] MEDS: ASPIRIN 81 MG TABLET(ECOTRIN) PO SCH (08:20)
[2019-07-14] MEDS: FAMOTIDINE 20 MG TABLET PO SCH ×2 (08:23→20:45)
[2019-07-14] MEDS: METOPROLOL TARTRATE 25 MG TABLET PO SCH ×2 (08:23→20:45)
[2019-07-14] MEDS: DOCUSATE SODIUM 100 MG CAPSULE PO SCH (08:23)
[2019-07-14] MEDS: ASPIRIN 325 MG TABLET PO SCH (08:23)
[2019-07-14] MEDS ORDERED: TAMSULOSIN HCL 0.4 MG CAP PO ONE (09:30)
--- NOTE | 2019-07-14 09:34 | NUR ---
Discharge Planning: DCP faxed pt referral to [facility] (f [phone] p [phone]) DCP to follow up Addendum: 07/14/19 at 1112 by Eugenie Dan DP [facility] PHONE NUMBER CORRECTION Call CINTIA Rosario [phone] DCP spoke with CM she will arrange SNF for DC. Addendum: 07/14/19 at 1143 by Eugenie Dan DP DCP took patient update packet to nurse station, DCP also made CINTIA Rosario [phone] aware to call nurses station when SNF is accepting.
--- NOTE | 2019-07-14 10:10 | NUR ---
Note Pt was seen by Dr Zazueta at bedside. Questions/concerns were answered at this time. DC casework manager working on pt transfer to SNF at this time. No needs noted at this time. Call light within reach.
--- NOTE | 2019-07-14 13:45 | NUR ---
Note Pt resting in bed with O2 at 1L/nc at this time. No needs noted at this time. Tele unit attached and intact. Call light within reach.
--- NOTE | 2019-07-14 15:20 | NUR ---
AJIT BURNETTE ASKED ME TO F/U WITH [facility] RE: SNF PLACEMENT. WAITING FOR A BED AT [facility] PER [facility].
--- NOTE | 2019-07-14 18:35 | NUR ---
Note Pt resting in bed with tele unit attached and intact at this time. Pt was checked on q1' and PRN all shift for needs and care. Pt's appetite poor all shift for 3 meals. Pt has O2 on at 1L/nc all shift - pt's request. No SOB/resp distress or pain/discomfort noted all shift. Pt uses urinal well all shift. Pt sleepy all shift. Pt also hard of hearing. No needs noted at this time. Call light within reach. IV in left forearm intact and patent at this time.
--- NOTE | 2019-07-14 18:50 | NUR ---
Called Abraham, child support case officer of [facility], dialed [phone], pt is going to [facility] Room 130A.It's a Will Call for [facility] at [phone].
--- NOTE | 2019-07-14 19:30 | NUR ---
OPENING NOTES Received patient resting and alert. No acute respiratory distress observed, 1L NC. IV Left FA 20g, patent, dressings c/d/i. Call light within reach, bed alarm on, and bed at lowest position. Will continue to monitor.
--- NOTE | 2019-07-14 20:10 | NUR ---
Spoke with son, Shiv, by telephone and then by bedside about Discharge plans and has paged Dr. Zazueta for change in discharge orders.
--- NOTE | 2019-07-14 20:15 | NUR ---
Spoke to payable representative, Berkley Eckert . Clarified that patient wishes to go home and not to SNF.
--- NOTE | 2019-07-14 20:58 | NUR ---
Spoke to Dr. Zazueta on phone in regards to patient's wish to be discharged home instead of snf. Son is agreeable for discharge home.
[2019-07-14] MEDS: LATANOPROST 2.5 ML DROPS (XALATAN) OP SCH (21:00)
--- NOTE | 2019-07-14 22:05 | NUR ---
Patient is resting with no signs of acute respiratory distress, 1L NC. Safety precautions in place. Will continue to monitor.
--- NOTE | 2019-07-14 22:27 | NUR ---
CALLED SON THAT PATIENT IS READY TO BE DISCHARGED.
--- NOTE | 2019-07-14 22:56 | NUR ---
D/C Patient Patient given medication reconciliation form and D/C instructions. Exit Care provided. Patient verbalized understanding. Patient left on wheelchair with son for discharge to home by personal vehicle. Patient in stable condition, ID band and tele box removed. IV catheter removed, intact and dressing applied, no active bleeding. All belongings sent with patient and son will machine pecan picker home medications from pharmacy in the morning.
[2019-07-15] MEDS ORDERED: TAMSULOSIN HCL 0.4 MG CAP PO SCH (09:00)
== END 2019-07-14 22:56 | disposition home or self-care (01) | DRG 191 ==
LOC: SED 22:37 → STU 07-12 01:21
PROVIDERS: ADMIT Internal Medicine Hospice and Palliative Medicine; ATTEND Internal Medicine Hospice and Palliative Medicine
DX: J44.1 Chronic obstructive pulmonary disease with (acute) exacerbation (principal); J96.10 Chronic respiratory failure, unspecified whether with hypoxia or hypercapnia; R07.89 Other chest pain; D64.9 Anemia, unspecified; F03.90 Unspecified dementia, unspecified severity, without behavioral disturbance, psychotic disturbance, mood disturbance, and anxiety; G89.4 Chronic pain syndrome; M19.011 Primary osteoarthritis, right shoulder; H40.9 Unspecified glaucoma; I10 Essential (primary) hypertension; I25.10 Atherosclerotic heart disease of native coronary artery without angina pectoris; I25.2 Old myocardial infarction; Z85.46 Personal history of malignant neoplasm of prostate; Z87.891 Personal history of nicotine dependence; Z95.5 Presence of coronary angioplasty implant and graft; Z99.81 Dependence on supplemental oxygen; Z79.899 Other long term (current) drug therapy; Z79.82 Long term (current) use of aspirin
CPT/HCPCS: 36415; 71045; 80053; 82550-TC; 83880; 84153; 84484; 85025; 85610-TC; 85730-TC; 93005; 94640; 94760; 99285; G0378; J7612; J7620; J7626

== ENCOUNTER 2019-12-30 09:47 | Inpatient (IN) | payer OTHER, MEDICAID ==
[~2019-12-30] VITALS: Ht 170.2 cm; Wt 67.1 kg
[2019-12-30 09:47] VITALS: BP_SYST 113
[2019-12-30] MEDS ORDERED: IPRATROPIUM BROM 0.5 MG/2.5 ML VIAL.NEB (ATROVENT) INH ONE (10:15)
[2019-12-30] MEDS ORDERED: ALBUTEROL SULFATE 0.083% 2.5 MG/3 ML VIAL.NEB INH ONE (10:15)
[2019-12-30 10:24] LABS: BASOPHILS # (AUTO) 0.1 K/uL (0.0-0.2); BASOPHILS % (AUTO) 1.3 % (0.0-2.0); EOSINOPHILS # (AUTO) 0.1 K/uL (0.0-0.4); LYMPHOCYTES # (AUTO) 1.9 K/uL (1.0-5.5); MEAN CORPUSCULAR HGB CONC 32 % (32-36); NEUTROPHILS # (AUTO) 2.5 K/uL (1.8-7.7); WHITE BLOOD COUNT (AUTO) 5.2 K/uL (4.8-10.8)
[2019-12-30 10:32] LABS: EOSINOPHILS % (AUTO) 2.6 % (0.0-4.0); HEMATOCRIT 39.9 % (36-54); HEMOGLOBIN 12.6 g/dL (14.0-18.0); MEAN CORPUSCULAR HEMOGLOBIN 27 pg (27-31); MEAN CORPUSCULAR VOLUME 86 fL (79.0-98.0); MONOCYTES # (AUTO) 0.6 K/uL (0.0-1.0); NEUTROPHILS % (AUTO) 48.1 % (40.0-70.0); PLATELET COUNT (AUTO) 124 K/uL (130-430); RED BLOOD CELL COUNT(AUTO) 4.62 MIL/uL (4.2-6.2); RED CELL DISTRIBUTION WIDTH 15.9 % (9.0-15.0)
[2019-12-30 10:39] LABS: ANION GAP 5 (5-15); CALCIUM 8.5 mg/dL (8.4-11.0); CHLORIDE 107 mmol/L (98-107); CREATININE 1.05 mg/dL (0.55-1.30); GLUCOSE 92 mg/dL (70-99); POTASSIUM 4.3 mmol/L (3.5-5.1); SODIUM SERUM 143 mmol/L (136-145); UREA NITROGEN, BLOOD 19 mg/dL (8-21)
[2019-12-30 10:45] LABS: ALANINE AMINOTRANSFERASE 23 U/L (12-78); ALBUMIN 3.3 g/dL (3.4-4.8); ASPARTATE AMINOTRANSFERASE 29 U/L (10-37)
[2019-12-30] MEDS ORDERED: ASPIRIN 325 MG TABLET PO ONE (11:30)
[2019-12-30] MEDS ORDERED: NITR0.4T47 SL (11:38)
[2019-12-30 12:07] VITALS: BP_SYST 126
[2019-12-30] MEDS ORDERED: IPRATROPIUM/ALBUTEROL SULFATE 3 ML AMPUL.NEB (DUONEB) INH PRN ×2 (13:00→13:30)
[2019-12-30] MEDS ORDERED: methylPREDNISolone SOD SUCC/PF 62.5 MG/ML VIAL IVP ONE (13:00)
[2019-12-30 13:04] VITALS: BP_SYST 126
[2019-12-30] MEDS ORDERED: ALBUTEROL MDI INHALATION 8 GM INH INH PRN (13:30)
[2019-12-30] MEDS ORDERED: NITROGLYCERIN 0.4 MG TAB.SUBL SL PRN (13:30)
[2019-12-30] MEDS ORDERED: LORazepam 2 MG/ML VIAL IVP PRN (13:45)
[2019-12-30] MEDS ORDERED: ONDANSETRON HCL 4 MG/2 ML VIAL IVP PRN (13:45)
[2019-12-30] MEDS ORDERED: ACETAMINOPHEN 325 MG TABLET PO PRN (13:45)
[2019-12-30] MEDS ORDERED: HYDROcodone/ACETAMIN 5-325 MG TAB (NORCO/ VICODIN) PO PRN (13:45)
[2019-12-30] MEDS ORDERED: DOCUSATE SODIUM 100 MG CAPSULE PO ONE (14:00)
[2019-12-30] MEDS ORDERED: SENNOSIDES/DOCUSATE SODIUM 1 TAB TABLET(SENOKOT-S) PO ONE (14:00)
[2019-12-30] MEDS ORDERED: PANTOPRAZOLE SODIUM 40 MG TAB PO ONE (14:00)
[2019-12-30] MEDS ORDERED: oxyCODONE HCL 5 MG TABLET PO PRN (14:00)
[2019-12-30] MEDS ORDERED: TAMSULOSIN HCL 0.4 MG CAP PO ONE (14:00)
[2019-12-30] MEDS ORDERED: CELECOXIB 200 MG CAPSULE PO ONE (14:00)
[2019-12-30] MEDS ORDERED: ASPIRIN 81 MG TABLET(ECOTRIN) PO ONE (14:00)
[2019-12-30] MEDS: NORMAL SALINE 5 ML DISP.SYRIN IVF SCH ×4 (14:00→23:04)
[2019-12-30] MEDS ORDERED: CHOLECALCIFEROL (VITAMIN D3) 2,000 UNIT TABLET PO ONE (14:00)
[2019-12-30] MEDS: IPRATROPIUM/ALBUTEROL SULFATE 3 ML AMPUL.NEB (DUONEB) INH SCH ×2 (14:16→19:00)
[2019-12-30] MEDS ORDERED: IPRATROPIUM BROMIDE 17 mCg/ACTUATION, 12.9 GM AER.W.ADAP INH SCH (15:00)
[2019-12-30 16:46] VITALS: BP_SYST 108
[2019-12-30] MEDS: cefTRIAXone 1 GM in D5W 50 ML IV SCH (18:16)
[2019-12-30] MEDS: ISOSORBIDE DINITRATE 10 MG TABLET (ISORDIL) PO SCH ×2 (18:17→23:06)
[2019-12-30] MEDS: LATANOPROST 2.5 ML DROPS (XALATAN) OP SCH (18:18)
[2019-12-30] MEDS: BUDESONIDE 0.5 MG/2 ML AMPUL.NEB INH SCH (19:00)
[2019-12-30 20:08] VITALS: BP_SYST 110
[2019-12-30] MEDS ORDERED: FLUTICASONE 250 mCg/SALMETEROL 50 mCg DISKUS W.DEV IH SCH (21:00)
[2019-12-30] MEDS ORDERED: BUDESONIDE/FORMOTEROL 160-4.5 mCg, 6 GM INHALER INH SCH (21:00)
[2019-12-30] MEDS: METOPROLOL TARTRATE 25 MG TABLET PO SCH (21:00)
[2019-12-30] MEDS ORDERED: methylPREDNISolone SOD SUCC 40 MG/ML VIAL IVP SCH (21:00)
[2019-12-30] MEDS: P-EPHED SUL/LORATADINE TAB.SR.12H PO SCH (23:02)
[2019-12-30] MEDS: FAMOTIDINE 20 MG TABLET PO SCH (23:02)
[2019-12-30] MEDS: methylPREDNISolone SOD SUCC/PF 62.5 MG/ML VIAL IVP SCH (23:04)
[2019-12-31] VITALS: BP_SYST 101
[2019-12-31] MEDS: IPRATROPIUM/ALBUTEROL SULFATE 3 ML AMPUL.NEB (DUONEB) INH SCH ×4 (01:30→19:53)
[2019-12-31] MEDS: NORMAL SALINE 5 ML DISP.SYRIN IVF SCH ×6 (06:00→22:18)
[2019-12-31] MEDS: methylPREDNISolone SOD SUCC/PF 62.5 MG/ML VIAL IVP SCH ×3 (06:33→22:18)
[2019-12-31 07:16] LABS: BASOPHILS % (AUTO) 0.1 % (0.0-2.0); HEMATOCRIT 36.1 % (36-54); HEMOGLOBIN 11.6 g/dL (14.0-18.0); LYMPHOCYTES # (AUTO) 0.7 K/uL (1.0-5.5); LYMPHOCYTES % (AUTO) 9.5 % (20.5-51.5); MEAN CORPUSCULAR HEMOGLOBIN 27 pg (27-31); MEAN CORPUSCULAR HGB CONC 32 % (32-36); MEAN CORPUSCULAR VOLUME 85 fL (79.0-98.0); MONOCYTES # (AUTO) 0.1 K/uL (0.0-1.0); MONOCYTES % (AUTO) 0.9 % (1.7-9.3); NEUTROPHILS # (AUTO) 6.5 K/uL (1.8-7.7); NEUTROPHILS % (AUTO) 89.5 % (40.0-70.0); PLATELET COUNT (AUTO) 126 K/uL (130-430); RED BLOOD CELL COUNT(AUTO) 4.25 MIL/uL (4.2-6.2); RED CELL DISTRIBUTION WIDTH 15.2 % (9.0-15.0); WHITE BLOOD COUNT (AUTO) 7.2 K/uL (4.8-10.8)
[2019-12-31 07:40] LABS: ANION GAP 9 (5-15); CALCIUM 8.3 mg/dL (8.4-11.0); CHLORIDE 104 mmol/L (98-107); GLUCOSE 160 mg/dL (70-99); PHOSPHORUS 2.8 mg/dL (2.7-4.5); POTASSIUM 4.2 mmol/L (3.5-5.1); SODIUM SERUM 139 mmol/L (136-145); UREA NITROGEN, BLOOD 23 mg/dL (8-21)
[2019-12-31] MEDS: BUDESONIDE 0.5 MG/2 ML AMPUL.NEB INH SCH ×2 (07:46→19:53)
[2019-12-31 08:00] VITALS: BP_SYST 106
[2019-12-31] MEDS: FAMOTIDINE 20 MG TABLET PO SCH ×2 (08:34→22:17)
[2019-12-31] MEDS: TAMSULOSIN HCL 0.4 MG CAP PO SCH (08:34)
[2019-12-31] MEDS: PANTOPRAZOLE SODIUM 40 MG TAB PO SCH (08:34)
[2019-12-31] MEDS: CHOLECALCIFEROL (VITAMIN D3) 2,000 UNIT TABLET PO SCH (08:34)
[2019-12-31] MEDS: ASPIRIN 81 MG TABLET(ECOTRIN) PO SCH (08:36)
[2019-12-31] MEDS: DOCUSATE SODIUM 100 MG CAPSULE PO SCH (08:36)
[2019-12-31] MEDS: CELECOXIB 200 MG CAPSULE PO SCH (08:36)
[2019-12-31] MEDS: SENNOSIDES/DOCUSATE SODIUM 1 TAB TABLET(SENOKOT-S) PO SCH (08:36)
[2019-12-31] MEDS: P-EPHED SUL/LORATADINE TAB.SR.12H PO SCH ×2 (08:43→22:17)
[2019-12-31] MEDS: ISOSORBIDE DINITRATE 10 MG TABLET (ISORDIL) PO SCH ×3 (09:00→22:17)
[2019-12-31 11:30] VITALS: BP_SYST 113
[2019-12-31] MEDS: METOPROLOL TARTRATE 25 MG TABLET PO SCH ×2 (12:07→21:00)
[2019-12-31] MEDS: cefTRIAXone 1 GM in D5W 50 ML IV SCH (13:54)
[2019-12-31 15:22] VITALS: BP_SYST 119
[2019-12-31] MEDS: LATANOPROST 2.5 ML DROPS (XALATAN) OP SCH (18:01)
[2019-12-31 20:11] VITALS: BP_SYST 119
[2020-01-01] VITALS: BP_SYST 101
[2020-01-01] MEDS ORDERED: FLU VACC TS2019(65UP)/MF59C/PF 45 MCG/0.5 ML SYRINGE I.M. PRN
[2020-01-01] MEDS: IPRATROPIUM/ALBUTEROL SULFATE 3 ML AMPUL.NEB (DUONEB) INH SCH ×2 (01:47→07:21)
[2020-01-01] MEDS: NORMAL SALINE 5 ML DISP.SYRIN IVF SCH ×2 (06:00→06:07)
[2020-01-01] MEDS: methylPREDNISolone SOD SUCC/PF 62.5 MG/ML VIAL IVP SCH (06:06)
[2020-01-01] MEDS: BUDESONIDE 0.5 MG/2 ML AMPUL.NEB INH SCH (07:21)
[2020-01-01 08:00] VITALS: BP_SYST 104
[2020-01-01] MEDS: METOPROLOL TARTRATE 25 MG TABLET PO SCH (09:00)
[2020-01-01] MEDS: ISOSORBIDE DINITRATE 10 MG TABLET (ISORDIL) PO SCH (09:00)
[2020-01-01] MEDS: PANTOPRAZOLE SODIUM 40 MG TAB PO SCH (09:01)
[2020-01-01] MEDS: TAMSULOSIN HCL 0.4 MG CAP PO SCH (09:01)
[2020-01-01] MEDS: SENNOSIDES/DOCUSATE SODIUM 1 TAB TABLET(SENOKOT-S) PO SCH (09:01)
[2020-01-01] MEDS: FAMOTIDINE 20 MG TABLET PO SCH (09:01)
[2020-01-01] MEDS: DOCUSATE SODIUM 100 MG CAPSULE PO SCH (09:01)
[2020-01-01] MEDS: ASPIRIN 81 MG TABLET(ECOTRIN) PO SCH (09:03)
[2020-01-01] MEDS: CHOLECALCIFEROL (VITAMIN D3) 2,000 UNIT TABLET PO SCH (09:04)
[2020-01-01] MEDS: P-EPHED SUL/LORATADINE TAB.SR.12H PO SCH (09:05)
[2020-01-01] MEDS: CELECOXIB 200 MG CAPSULE PO SCH (09:05)
[2020-01-01] MEDS ORDERED: PRED20TA PO (09:59)
[2020-01-01] MEDS ORDERED: AMOX-426 PO (09:59)
[2020-01-01 11:08] VITALS: BP_SYST 110
[2020-01-01 12:00] VITALS: BP_SYST 110
== END 2020-01-01 13:00 | disposition home health service (06) | DRG 189 ==
LOC: SED 09:47 → STU 11:33
PROVIDERS: ADMIT Internal Medicine Hospice and Palliative Medicine; ATTEND Internal Medicine Hospice and Palliative Medicine
DX: J96.21 Acute and chronic respiratory failure with hypoxia (principal); I21.A1 Myocardial infarction type 2; J44.1 Chronic obstructive pulmonary disease with (acute) exacerbation; D69.6 Thrombocytopenia, unspecified; E78.5 Hyperlipidemia, unspecified; I25.10 Atherosclerotic heart disease of native coronary artery without angina pectoris; M06.9 Rheumatoid arthritis, unspecified; I10 Essential (primary) hypertension; R79.89 Other specified abnormal findings of blood chemistry; I25.2 Old myocardial infarction; Z85.46 Personal history of malignant neoplasm of prostate; Z95.5 Presence of coronary angioplasty implant and graft; Z87.891 Personal history of nicotine dependence; Z99.81 Dependence on supplemental oxygen; Z79.899 Other long term (current) drug therapy; Z79.82 Long term (current) use of aspirin; Z82.49 Family history of ischemic heart disease and other diseases of the circulatory system
CPT/HCPCS: 36415; 71045; 80048; 80053; 83735-TC; 83880; 84100-TC; 84484; 85025; 86710; 93005; 94640; 94760; 99285; G0378; J0696; J2930; J7060; J7613; J7626